=== PATIENT | male | born 1990 | race Hispanic/Latino ===

== ENCOUNTER 2016-11-22 00:59 | Emergency (ER) | payer SELFPAY ==
[2016-11-22] MEDS ORDERED: ZOFRAN IV ONE (01:22)
[2016-11-22] MEDS ORDERED: NACL 0.9% 1000 ML 1,000 ML IV ONE (01:22)
[2016-11-22 01:41] LABS: Basophils % (Auto) 0.4 % (0.0-1.8); Eosinophils % (Auto) 0.4 % (0.0-4.3); Hemoglobin 14.1 gm/dl (11.8-15.2); Mean Corpuscular HGB Conc 34 % (32-34); Mean Corpuscular Hemoglobin 31 pg (28-32); Mean Corpuscular Volume 93 fl (84-94); Platelet Count 287 K/mm3 (140-440); Red Blood Count 4.54 M/mm3 (3.65-5.03); Red Cell Distribution Width 13.5 % (13.2-15.2); White Blood Count 14.4 K/mm3 (4.5-11.0)
--- NOTE | 2016-11-22 02:22 | Emergency Department Report ---
HPI - General Chief Complaint: Overdose Time Seen by Provider: 11/22/16 01:47 - HPI HPI: Room 7 The patient is a 26-year-old male presenting with a chief complaint of heroin overdose. The patient was found in the bathroom of a [employer] unresponsive. Per EMS there was a tourniquet found on the floor next to the patient and tract cardoso noted on the patient's arm. The patient was given 2 mg Narcan prior to arrival. Patient currently denies complaints Location: [see above] Duration: [see above] Quality: Unresponsive Severity: Moderate Modifying factors: [see above] Context: [see above] Mode of transportation: [not driving] ED Past Medical Hx - Past Medical History Previous Medical History?: No - Surgical History Past Surgical History?: No - Family History Family history: no significant - Social History Smoking Status: Current Every Day Smoker Substance Use Type: Alcohol, Heroin - Medications Home Medications: Home Medications Medication Instructions Recorded Confirmed Last Taken Type Sulfamethoxazole/Trimethoprim 1 each PO BID #14 tablet 11/22/16 Unknown Rx [Bactrim DS TAB] ED Review of Systems ROS: Stated complaint: AMS Other details as noted in HPI Comment: All other systems reviewed and negative Constitutional: denies: chills, fever Eyes: denies: eye pain, eye discharge, vision change ENT: denies: ear pain, throat pain Respiratory: denies: cough, shortness of breath, wheezing Cardiovascular: denies: chest pain, palpitations Endocrine: no symptoms reported Gastrointestinal: denies: abdominal pain, nausea, diarrhea Genitourinary: denies: urgency, dysuria Musculoskeletal: denies: back pain, joint swelling, arthralgia Skin: denies: rash, lesions Neurological: denies: weakness, paresthesias Psychiatric: denies: anxiety, depression Physical Exam - Physical Exam Vital Signs: Vital Signs 11/22/16 11/22/16 11/22/16 01:31 01:32 01:33 Temperature 97.8 F Pulse Rate 98 H Respiratory 12 16 Rate Blood Pressure 114/76 O2 Sat by Pulse 96 96 Oximetry Physical Exam: GENERAL: The patient is well-developed well-nourished male lying on stretcher not appearing to be in acute distress. [] HEENT: Normocephalic. Atraumatic. Patient has moist mucous membranes. NECK: Supple. No meningitic signs are noted. Trachea midline CHEST/LUNGS: Clear to auscultation. There is no respiratory distress noted. HEART/CARDIOVASCULAR: Regular. There is no tachycardia. There is no gallop rub or murmur. ABDOMEN: There is no abdominal distention. SKIN: There is no rash. There is no edema. There is no diaphoresis. NEURO: The patient is asleep but is easily awakened by voice and answers questions appropriately. The patient is cooperative. The patient has no focal neurologic deficits. The patient has normal speech MUSCULOSKELETAL: There is no evidence of acute injury. ED Course Vital Signs 11/22/16 11/22/16 11/22/16 01:31 01:32 01:33 Temperature 97.8 F Pulse Rate 98 H Respiratory 12 16 Rate Blood Pressure 114/76 O2 Sat by Pulse 96 96 Oximetry - Reevaluation(s) Reevaluation #1: 11/22/16 03:35 Patient still easily responsive to voice. Patient remains awake longer than the duration of Narcan. Patient okay to be discharged home to [facility] ED Medical Decision Making - Lab Data Result diagrams: 11/22/16 01:29 11/22/16 01:29 Laboratory Tests 11/22/16 11/22/16 11/22/16 01:29 01:29 01:29 WBC 14.4 H RBC 4.54 Hgb 14.1 Hct 42.0 MCV 93 MCH 31 MCHC 34 RDW 13.5 Plt Count 287 Lymph % (Auto) 19.3 Granite % (Auto) 7.2 Eos % (Auto) 0.4 Baso % (Auto) 0.4 Lymph # 2.8 Granite # 1.0 H Eos # 0.1 Baso # 0.1 Seg Neutrophils % 72.7 H Seg Neutrophils # 10.4 H Sodium 144 Potassium 3.7 Chloride 101.8 Carbon Dioxide 22 Anion Gap 24 BUN 9 Creatinine 0.7 L Estimated GFR > 60 BUN/Creatinine Ratio 13 Glucose 125 H Calcium 8.9 Urine Color Urine Turbidity Urine pH Ur Specific Hoagland Urine Protein Urine Glucose (UA) Urine Ketones Urine Blood Urine Nitrite Urine Bilirubin Urine Urobilinogen Ur Leukocyte Esterase Urine WBC (Auto) Urine RBC (Auto) U Epithel Cells (Auto) Amorphous Crystals Hyaline Casts Urine Mucus Urine Methadone Screen Ur Barbiturates Screen Ur Phencyclidine Scrn U Benzodiazepines Scrn Plasma/Serum Alcohol 0.06 11/22/16 11/22/16 03:12 03:12 WBC RBC Hgb Hct MCV MCH MCHC RDW Plt Count Lymph % (Auto) Granite % (Auto) Eos % (Auto) Baso % (Auto) Lymph # Granite # Eos # Baso # Seg Neutrophils % Seg Neutrophils # Sodium Potassium Chloride Carbon Dioxide Anion Gap BUN Creatinine Estimated GFR BUN/Creatinine Ratio Glucose Calcium Urine Color Yellow Urine Turbidity Clear Urine pH 6.0 Ur Specific Hoagland 1.013 Urine Protein 30 mg/dl Urine Glucose (UA) Neg Urine Ketones Neg Urine Blood Sm Urine Nitrite Neg Urine Bilirubin Neg Urine Urobilinogen < 2.0 Ur Leukocyte Esterase Sm Urine WBC (Auto) 31.0 H Urine RBC (Auto) 4.0 U Epithel Cells (Auto) < 1.0 Amorphous Crystals 1+ Hyaline Casts 22 Urine Mucus Few Urine Methadone Screen Presumptive negative Ur Barbiturates Screen Presumptive negative Ur Phencyclidine Scrn Presumptive negative U Benzodiazepines Scrn Presumptive negative Plasma/Serum Alcohol - Differential Diagnosis heroin overdose Critical care attestation.: If time is entered above; I have spent that time in minutes in the direct care of this critically ill patient, excluding procedure time. ED Disposition Clinical Impression: Accidental heroin overdose, Polysubstance abuse, UTI (urinary tract infection) Disposition: DC-01 TO HOME OR SELFCARE Is pt being admited?: No Does the pt Need Aspirin: No Condition: Stable Instructions: Polysubstance Abuse (ED), Narcotic Abuse (ED) Additional Instructions: Return to the emergency department immediately should you develop worsening symptoms, fever, inability to tolerate food or liquid or any other concerns. Prescriptions: Sulfamethoxazole/Trimethoprim [Bactrim DS TAB] 1 each PO BID #14 tablet Referrals: [facility] [Outside] - 3-5 Days Time of Disposition: 03:37 (d/c to family)
[2016-11-22 02:23] LABS: Anion Gap 24 mmol/L; BUN/Creatinine Ratio 13; Blood Urea Nitrogen 9 mg/dL (9-20); Calcium 8.9 mg/dL (8.4-10.2); Carbon Dioxide 22 mmol/L (22-30); Chloride 101.8 mmol/L (98-107); Glucose 125 mg/dL (75-100); Potassium 3.7 mmol/L (3.6-5.0); Sodium 144 mmol/L (137-145)
[2016-11-22 03:16] LABS: Urine Drugs of Abuse Note Disclamer
[2016-11-22 03:30] LABS: Bilirubin,Urine NEG (Negative); Blood,Urine SM (Negative); Ketones,Urine NEG (Negative); Leukocyte Esterase,Urine SM (Negative); Mucus,Urine FEW /HPF; Nitrite,Urine NEG (Negative); Urobilinogen,Urine < 2.0 mg/dL (<2.0)
[2016-11-22 07:29] VITALS: BP 114/69
== END 2016-11-22 07:30 | disposition home or self-care (01) ==
LOC: ED 00:59
DX: T40.1X1A Poisoning by heroin, accidental (unintentional), initial encounter (principal); F10.10 Alcohol abuse, uncomplicated; N39.0 Urinary tract infection, site not specified; F11.10 Opioid abuse, uncomplicated; F17.210 Nicotine dependence, cigarettes, uncomplicated; Y92.89 Other specified places as the place of occurrence of the external cause
CPT/HCPCS: 36415; 80048; 80307; 81001; 85025; 93005; 93010; 96361; 96374; 99284; G0480; 80320